=== PATIENT | male | born 1940 | race Caucasian/White ===

== ENCOUNTER 2021-02-04 22:32 | Inpatient (IN) | payer MEDICARE, OTHER ==
[2021-02-04] MEDS ORDERED: Norepinephrine 8 MG/0.9% NS 250 ML ONE (22:42)
[2021-02-05] MEDS ORDERED: Dexamethasone 10 MG/ML VIAL ONE (00:06)
[2021-02-05] MEDS ORDERED: Norepinephrine 8 MG/0.9% NS 250 ML IVPB SCH (01:15)
[2021-02-05] MEDS ORDERED: Acetaminophen 325 MG TAB PO PRN (03:15)
[2021-02-05] MEDS ORDERED: Ondansetron PF 4 MG/2 ML Vial IVP PRN (03:15)
[2021-02-05] MEDS ORDERED: HumaLOG 300 UNITS/3 ML VIAL SC PRN (03:18)
[2021-02-05] MEDS ORDERED: Dextrose 5% in Water 1,000 ML IV PRN (03:18)
[2021-02-05] MEDS ORDERED: Dextrose 50% Abboject 50 ML SYRINGE SLOW IVP PRN (03:18)
[2021-02-05] MEDS: Sodium Chloride 0.9% 1,000 ML IV SCH ×3 (03:37→20:08)
[2021-02-05 04:35] LABS: #Eosinphils 0.2 thou/uL (0.0-0.7); #Lymphocytes 0.8 thou/uL (1.20-3.40); #Monocytes 0.2 thou/uL (0.11-0.59); #Neutrophils 7.8 thou/uL (1.40-6.50); %Basophils 0.2 % (0.0-1.0); %Lymphocytes 9.2 % (21.0-51.0); %Monocytes 1.7 % (0.0-10.0); %Neutrophils 86.9 % (42.0-75.0); Hemoglobin 8.7 g/dL (14.0-18.0); Mean Corpuscular HGB CONC 33.8 g/dL (32.0-36.0); Mean Corpuscular Volume 97.7 fL (78.0-98.0); Mean Platelet Volume 8.5 fL (7.4-10.4); Platelet Count 373 thou/uL (130-400); RBC Distribution Width 14.5 % (11.5-14.5); Red Blood Cell (RBC) Count 2.64 mill/uL (4.70-6.10)
[2021-02-05 04:53] LABS: Lactic Acid 0.8 mmol/L (0.5-2.2)
[2021-02-05 04:57] LABS: Anion Gap 13 mmol/L (10-20); BUN (Urea Nitrogen) 57 mg/dL (8.4-25.7); Calc. Creatinine Clearance 32 mL/min (70-130); Calcium 8.7 mg/dL (7.8-10.44); Carbon Dioxide 21 mmol/L (23-31); Chloride 107 mmol/L (98-107); Glucose 166 mg/dL (83-110); Potassium 4.2 mmol/L (3.5-5.1); Sodium 137 mmol/L (136-145)
[2021-02-05] MEDS: Piperacillin/Tazobactam 2.25 GM in Sodium Chloride 0.9% 100 ML IVPB SCH ×3 (06:07→21:20)
[2021-02-05 06:11] LABS: ALT (SGPT) 24 U/L (8-55); AST (SGOT) 41 U/L (5-34); Albumin 3.2 g/dL (3.4-4.8); Alkaline Phosphatase 35 U/L (40-110); Bilirubin, Direct 0.2 mg/dL (0.1-0.3); Bilirubin, Total 0.4 mg/dL (0.2-1.2); Protein, Total 5.9 g/dL (5.8-8.1)
[2021-02-05] MEDS ORDERED: Enoxaparin Sodium 40 MG/0.4 ML SYRINGE SC SCH (09:00)
[2021-02-05] MEDS ORDERED: Clopidogrel Bisulfate 75 MG TAB PO SCH (09:00)
[2021-02-05] MEDS ORDERED: Famotidine 20 MG TAB PO SCH (09:00)
[2021-02-05] MEDS: Midodrine HCl 5 MG TAB PO SCH ×3 (09:53→19:58)
[2021-02-05 09:59] LABS: Reticulocyte Count 1.5 % (0.5-1.5)
[2021-02-05] MEDS: Alogliptin 25 MG TAB PO SCH (10:04)
[2021-02-05 10:15] LABS: Lactic Acid 0.7 mmol/L (0.5-2.2)
[2021-02-05 10:20] LABS: Cardiac Risk 3.2 (Less than 4.5); Magnesium 1.7 mg/dL (1.6-2.6)
[2021-02-05 10:44] LABS: Thyroid Stimulating Hormone 0.6035 uIU/mL (0.35-4.94)
[2021-02-05 18:39] LABS: Bacteria/HPF None Seen HPF (None Seen); Bilirubin Negative (Negative); Blood, Urine Negative (Negative); Clarity Clear (Clear); Glucose, Urine (Dipstick) Normal (Negative); Ketone, Urine Negative (Negative); Leukocyte 75 Leu/uL (Negative); Nitrite Negative (Negative); Protein, Urine (Dipstick) Negative (Neg-Trace); RBC/HPF 0-3 HPF (0-3); Specific Gravity, Urine 1.018 (1.002-1.036); Squamous Epithelial None Seen HPF (0-3); Urobilinogen Normal mg/dL (Less than 2); pH, Urine 5.5 (5.0-9.0)
[2021-02-05 18:43] LABS: Urine Culture Reflex Yes Yes
[2021-02-05] MEDS: Atorvastatin Calcium 40 MG TAB PO SCH (19:58)
[2021-02-06] MEDS: Piperacillin/Tazobactam 2.25 GM in Sodium Chloride 0.9% 100 ML IVPB SCH ×3 (05:04→21:51)
[2021-02-06 06:29] LABS: #Basophils 0.1 thou/uL (0.0-0.2); #Eosinphils 0.7 thou/uL (0.0-0.7); #Lymphocytes 2.3 thou/uL (1.20-3.40); #Monocytes 0.7 thou/uL (0.11-0.59); #Neutrophils 6.2 thou/uL (1.40-6.50); %Basophils 0.5 % (0.0-1.0); %Eosinophils 7.1 % (0.0-10.0); %Monocytes 7.3 % (0.0-10.0); %Neutrophils 62.1 % (42.0-75.0); Hemoglobin 9.6 g/dL (14.0-18.0); Mean Corpuscular HGB CONC 33.5 g/dL (32.0-36.0); Mean Corpuscular Hemoglobin 32.9 pg (27.0-31.0); Mean Corpuscular Volume 98.2 fL (78.0-98.0); Mean Platelet Volume 8.5 fL (7.4-10.4); Platelet Count 326 thou/uL (130-400); White Blood Cell (WBC) Count 10.1 thou/uL (4.8-10.8)
[2021-02-06 06:50] LABS: Anion Gap 12 mmol/L (10-20); BUN (Urea Nitrogen) 40 mg/dL (8.4-25.7); Calc. Creatinine Clearance 38 mL/min (70-130); Calcium 8.3 mg/dL (7.8-10.44); Carbon Dioxide 20 mmol/L (23-31); Chloride 109 mmol/L (98-107); Glucose 115 mg/dL (83-110); Potassium 3.8 mmol/L (3.5-5.1); Sodium 137 mmol/L (136-145)
[2021-02-06 06:51] LABS: Bilirubin, Direct 0.3 mg/dL (0.1-0.3); Bilirubin, Total 0.4 mg/dL (0.2-1.2)
[2021-02-06] MEDS: Sodium Chloride 0.9% 1,000 ML IV SCH ×2 (07:05→18:24)
[2021-02-06] MEDS: Midodrine HCl 5 MG TAB PO SCH ×3 (08:17→20:20)
[2021-02-06] MEDS: Famotidine 20 MG TAB PO SCH (08:17)
[2021-02-06] MEDS: Alogliptin 25 MG TAB PO SCH (08:17)
[2021-02-06] MEDS: Atorvastatin Calcium 40 MG TAB PO SCH (20:20)
[2021-02-06 21:08] LABS: Creatinine, Urine 49.57 mg/dL (63-166)
[2021-02-07] MEDS: Sodium Chloride 0.9% 1,000 ML IV SCH ×3 (01:47→23:14)
[2021-02-07] MEDS: Piperacillin/Tazobactam 2.25 GM in Sodium Chloride 0.9% 100 ML IVPB SCH ×2 (05:30→14:15)
[2021-02-07 07:10] LABS: Anion Gap 14 mmol/L (10-20); BUN (Urea Nitrogen) 33 mg/dL (8.4-25.7); Calc. Creatinine Clearance 42 mL/min (70-130); Carbon Dioxide 18 mmol/L (23-31); Chloride 110 mmol/L (98-107); Glucose 99 mg/dL (83-110); Potassium 3.9 mmol/L (3.5-5.1); Sodium 138 mmol/L (136-145)
[2021-02-07 07:12] LABS: #Basophils 0.1 thou/uL (0.0-0.2); #Eosinphils 2.2 thou/uL (0.0-0.7); #Lymphocytes 2.3 thou/uL (1.20-3.40); #Neutrophils 6.4 thou/uL (1.40-6.50); %Eosinophils 18.7 % (0.0-10.0); %Lymphocytes 19.3 % (21.0-51.0); %Monocytes 7.9 % (0.0-10.0); %Neutrophils 53.1 % (42.0-75.0); Hemoglobin 10.3 g/dL (14.0-18.0); Mean Corpuscular HGB CONC 33.1 g/dL (32.0-36.0); Mean Corpuscular Hemoglobin 32.9 pg (27.0-31.0); Mean Corpuscular Volume 99.3 fL (78.0-98.0); Mean Platelet Volume 8.6 fL (7.4-10.4); Platelet Count 328 thou/uL (130-400); RBC Distribution Width 14.3 % (11.5-14.5); Red Blood Cell (RBC) Count 3.12 mill/uL (4.70-6.10)
[2021-02-07] MEDS: Alogliptin 25 MG TAB PO SCH (09:04)
[2021-02-07] MEDS: Midodrine HCl 5 MG TAB PO SCH ×3 (09:04→21:55)
[2021-02-07] MEDS: Famotidine 20 MG TAB PO SCH (09:05)
[2021-02-07] MEDS: Atorvastatin Calcium 40 MG TAB PO SCH (21:55)
[2021-02-08 05:02] VITALS: BMI 28.8
[2021-02-08] MEDS: Alogliptin 25 MG TAB PO SCH (08:43)
[2021-02-08] MEDS: Famotidine 20 MG TAB PO SCH (08:43)
[2021-02-08] MEDS: Midodrine HCl 5 MG TAB PO SCH (08:43)
[2021-02-08] MEDS: Sodium Chloride 0.9% 1,000 ML IV SCH ×2 (11:23→21:21)
[2021-02-08] MEDS ORDERED: Midodrine HCl 5 MG TAB PO PRN (14:48)
[2021-02-08] MEDS ORDERED: Doxepin HCl 25 MG CAP PO SCH (21:00)
[2021-02-08] MEDS: Atorvastatin Calcium 40 MG TAB PO SCH (21:20)
[2021-02-09] MEDS: Sodium Chloride 0.9% 1,000 ML IV SCH (06:26)
[2021-02-09] MEDS: Alogliptin 25 MG TAB PO SCH (08:44)
[2021-02-09] MEDS: Famotidine 20 MG TAB PO SCH (08:44)
[2021-02-09] MEDS ORDERED: Finasteride 5 MG TAB PO SCH (09:00)
[2021-02-09] MEDS ORDERED: Fenofibrate Nanocrystallized 145 MG TAB PO SCH (09:00)
[2021-02-09] MEDS ORDERED: Tamsulosin HCl 0.4 MG CAP PO SCH (09:00)
[2021-02-09 11:46] VITALS: BP 126/70; TEMP 97.5
[2021-02-09 13:48] LABS: Anion Gap 12 mmol/L (10-20); BUN (Urea Nitrogen) 19 mg/dL (8.4-25.7); Calc. Creatinine Clearance 54 mL/min (70-130); Calcium 7.9 mg/dL (7.8-10.44); Carbon Dioxide 20 mmol/L (23-31); Chloride 112 mmol/L (98-107); Glucose 129 mg/dL (83-110); Sodium 140 mmol/L (136-145)
== END 2021-02-09 16:02 | disposition home or self-care (01) | DRG 641 ==
LOC: ERS 22:32 → CCU 23:49 → T4-B 02-05 18:56
PROVIDERS: ADMIT Internal Medicine; ATTEND Internal Medicine
PROC: 3E033XZ Introduction of Vasopressor into Peripheral Vein, Percutaneous Approach (ICD-10-PCS; principal; 2021-02-04)
PROC: 8E0ZXY6 Isolation (ICD-10-PCS; 2021-02-04)
PROC: 4B02XSZ Measurement of Cardiac Pacemaker, External Approach (ICD-10-PCS; 2021-02-05)
PROC: 30233N1 Transfusion of Nonautologous Red Blood Cells into Peripheral Vein, Percutaneous Approach (ICD-10-PCS; 2021-02-05)
DX: E86.9 Volume depletion, unspecified (principal); N17.9 Acute kidney failure, unspecified; N30.00 Acute cystitis without hematuria; Z86.16 Personal history of COVID-19; E86.0 Dehydration; D50.9 Iron deficiency anemia, unspecified; N40.0 Benign prostatic hyperplasia without lower urinary tract symptoms; I95.9 Hypotension, unspecified; F03.90 Unspecified dementia, unspecified severity, without behavioral disturbance, psychotic disturbance, mood disturbance, and anxiety; I10 Essential (primary) hypertension; I95.1 Orthostatic hypotension; E11.51 Type 2 diabetes mellitus with diabetic peripheral angiopathy without gangrene; Z95.0 Presence of cardiac pacemaker; Z89.412 Acquired absence of left great toe; Z95.1 Presence of aortocoronary bypass graft; Z87.891 Personal history of nicotine dependence; Z79.899 Other long term (current) drug therapy; Z79.84 Long term (current) use of oral hypoglycemic drugs; Z79.02 Long term (current) use of antithrombotics/antiplatelets
CPT/HCPCS: 36415; 36416; 36430; 71045; 80048; 80061; 80076; 81001; 82247; 82274; 82533; 82570; 82607; 82728; 82746; 83540; 83550; 83605; 83735; 84300; 84443; 85025; 85046; 85379; 86140; 86850; 86900; 86901; 87045; 87046; 87086; 87427; 87449; 93005; 93010; 93306; 93923; 93970; 93975; 96374; 96375; J1100; J1815; J2543; J3490; P9016